=== PATIENT | male | born 1990 | race Caucasian/White ===

== ENCOUNTER 2016-11-17 14:17 | Emergency (ER) | payer BC, OTHER ==
[~2016-11-17] VITALS: Ht 190.5 cm; Wt 105.7 kg
[2016-11-17 14:44] VITALS: BP_SYST 133
[2016-11-17 15:46] VITALS: BP_SYST 136
== END 2016-11-17 15:46 | disposition home or self-care (01) ==
LOC: SED 14:17
DX: R55 Syncope and collapse (principal)
CPT/HCPCS: 82962; 93005; 99283